=== PATIENT | female | born 1990 | race Caucasian/White ===

== ENCOUNTER 2017-01-20 06:00 | Inpatient (IN) | payer OTHER ==
[~2017-01-20] VITALS: Ht 165.1 cm; Wt 97.0 kg
[~2017-01-20 06:00] MED LIST: CALC600T11 PO; FAMO20TA18 PO; IBUP-1542 PO; LABE100T3 PO; PREN-29 PO; UDMYL PO
[2017-01-20 11:52] VITALS: BP 147/85; PULSE 91; RESP 18
[2017-01-20] MEDS ORDERED: BUTORPHANOL 2 MG INJ IV PRN (12:00)
[2017-01-20] MEDS ORDERED: MISOPROSTOL 200 MCG TAB PR PRN (12:00)
[2017-01-20] MEDS ORDERED: CARBOPROST 250 MCG INJ IM PRN (12:00)
[2017-01-20] MEDS ORDERED: IBUPROFEN 600 MG TAB PO PRN (12:00)
[2017-01-20] MEDS ORDERED: OXYTOCIN 30 UNITS/LR 500 ML IV PRN (12:00)
[2017-01-20] MEDS ORDERED: METHYLERGONOVINE 0.2 MG INJ IM PRN (12:00)
[2017-01-20] MEDS ORDERED: LACTATED RINGER'S 1,000 ML IV PRN (12:00)
[2017-01-20] MEDS ORDERED: LIDOCAINE 1% (MPF) 30 ML INJ INJ PRN (12:00)
[2017-01-20] MEDS ORDERED: OXYTOCIN 30 UNITS/LR 500 ML IV SCH ×2 (12:00)
[2017-01-20] MEDS: LACTATED RINGER'S 1,000 ML IV SCH ×2 (12:22→19:00)
[2017-01-20 12:45] LABS: ADD SCAN DIFF NO
[2017-01-20 12:49] LABS: BASOPHILS % 0.2 % (0.0-2.0); EOSINOPHILS # 0.1 10^3/ul (0.0-0.5); EOSINOPHILS % 1.2 % (0.0-7.0); HEMATOCRIT 39.1 % (37.0-47.0); HEMOGLOBIN 13.1 g/dl (12.0-16.0); LYMPHOCYTES # 1.3 10^3/ul (0.8-2.9); LYMPHOCYTES % 21.5 % (15.0-51.0); MEAN CORPUSCULAR HEMOGLOBIN 27.9 pg (29.0-33.0); MEAN CORPUSCULAR HGB CONC 33.5 g/dl (32.0-37.0); MEAN CORPUSCULAR VOLUME 83.2 fl (82.0-101.0); MONOCYTE # 0.4 10^3/ul (0.3-0.9); MONOCYTES % 6.3 % (0.0-11.0); NEUTROPHIL # 4.2 10^3/ul (1.6-7.5); NEUTROPHILS % 70.1 % (39.0-77.0); PLATELET COUNT 259 10^3/UL (140-415)
[2017-01-20] MEDS ORDERED: MAGNESIUM SULFATE 4 GM/100 ML 100 ML IVPB ONE (13:00)
[2017-01-20] MEDS ORDERED: MAGNESIUM SULFATE 20 GM/500 ML 500 ML IV SCH (13:00)
[2017-01-20] MEDS ORDERED: DINOPROSTONE 10 MG VAG SUPP VAG ONE (13:00)
[2017-01-20 13:03] LABS: INR 0.87; PROTIME 11.8 Sec (12.2-14.2); PT RATIO 0.9
[2017-01-20 13:04] LABS: PARTIAL THROMBOPLASTIN TIME 27.2 Sec (25.0-35.0)
[2017-01-20 13:14] LABS: ALBUMIN 3.4 g/dl (3.3-4.9); ALBUMIN/GLOBULIN RATIO 0.94; CALCIUM 9.3 mg/dl (8.4-10.2); CREATININE 0.54 mg/dl (0.44-1.00); POTASSIUM 3.9 mmol/L (3.5-5.1)
[2017-01-20] MEDS: AMPICILLIN 2 GM/NS (PMX) 100 ML IVPB SCH ×2 (13:20→19:04)
[2017-01-20 14:00] LABS: ADD UMIC YES; URINE BILIRUBIN (Dip) NEGATIVE (NEGATIVE); URINE BLOOD (Dip) 1+ (NEGATIVE); URINE COLOR LT. YELLOW (YELLOW); URINE GLUCOSE (Dip) NEGATIVE (NEGATIVE); URINE KETONES (Dip) NEGATIVE (NEGATIVE); URINE LEUKOCYTE ESTERASE (Dip) 1+ (NEGATIVE); URINE NITRITE (Dip) NEGATIVE (NEGATIVE); URINE TOTAL PROTEIN (Dip) TRACE (NEGATIVE); URINE UROBILINOGEN (Dip) 0.2 E.U./dL (0.1-1.0)
--- NOTE | 2017-01-20 18:13 | HP ---
Date/Time of Note Date/Time of Note DATE: 01/20/17 TIME: 18:09 OB - History Hx of Present Free Text/Dictation admitted for elective induction Last Menstrual Period: Apr 15, 2016 Estimated Due Date: January 20, 2017 : 2 Para: 1 Care: Good Care Ultrasounds: Normal mid trimester US Obstetrical Complications: Other (Chronic HTN ) Medical Complications: Other (Chronic HTN ) Past Family/Social History * Past Medical, Surgical, Family and Obstetric Histories reviewed from chart. Blood Type: O+ Rubella: immune RPR/VDRL: Negative GBS Status: Positive HBsAG: Negative OB Admission Exam Vital Signs Vital Signs Vital Signs Date Time Temp Pulse Resp B/P Pulse Ox O2 Delivery O2 Flow Rate FiO2 01/20/17 11:52 97.5 91 18 147/85 Room Air Physical Exam HEENT: WNL Heart: Rhythm Normal Lungs: Clear, Equal Abdomen: WNL Extremities: Normal Reflexes: Normal Cervical Dilatation: None Effacement: 0% Station: -3 Membranes: Intact Heart Rate: 130's Accelerations: Accelerations Present Decelerations: No Decelerations Varibility: Moderate Contractions on Admission: None Last 72 hours Lab Results CBC & BMP 01/20/17 12:10 Liver Function Test 01/20/17 12:10 Alanine Aminotransferase (ALT/SGPT) 33 Albumin 3.4 Alkaline Phosphatase 187 H Aspartate Amino Transf (AST/SGOT) 33 Direct Bilirubin 0.00 Total Protein 7.0 OB Assessment/Plan Reason for admission: induction of labor Other Assessment: term gestation chronic HTN Induction Method: per Misoprostol Protocol JEFF HASSAN MD January 20, 2017 18:13
[2017-01-21] MEDS: AMPICILLIN 2 GM/NS (PMX) 100 ML IVPB SCH ×4 (00:17→18:16)
--- NOTE | 2017-01-21 01:03 | QN ---
Documentation Comment Patient progressed her cervical dilatation to %80 7-8 -2 or -3 station without further progress X 4-5 hours regardless of adequate contractions. After discussion with patient, agreed to have C/S ads mode of her delivery. Patient had good awareness of nature and complications of C/S procedure including but but limited to infection and hemorrhage. and agreed to undergo C/ S . JEFF HASSAN MD January 21, 2017 01:03
--- NOTE | 2017-01-21 01:07 | OPR ---
Operative Report Planned Procedure Procedure date January 21, 2017 Procedure(s) primary C/S Performed by: JEFF HASSAN MD Assisting provider: CR RAY MD Anesthesiologist: SY HEDRICK DO Pre-procedure diagnosis arrest of dilatation and decent term gestation gestational DM Anesthesia Type: epidural Procedure Description Under satisfactory anaesthesia a Pfannenstiel incision was made two fingerbreadth above and parallel to the symphysis of pubis. Incision was extended laterally to the border of the Recti muscles on either sides. Incision was carried down with sharp and blunt dissection until fascia was reached. Anterior Recti muscle fascia was incised in mid portion and incision extended laterally to the border of skin incision. Fascia was mobilized from muscle superiorly and Recti muscles were from midline using sharp and blunt dissection. Peritoneum was visualized; Avoiding bowel and bladder it was incised . Incision was extended superiorly and inferiorly. Bladder blade was placed. Posterior peritoneum covering the lower segment of the uterus and lower segment of the uterus were incised. Incision was extended laterally to the border of Round Lig. on either sides and baby was delivered from .frontal head position . Amniotic fluid appeared clear. Cord blood was obtained and cord had 3 vessels . Placenta was delivered spontaneously and appeared intact and complete. Intrauterine cavity was rubbed with a laparotomy sponge. Uterine incision was closed in 2 layers using running stitches of No1 Monocryl. Hemostasis appeared secure. Ovaries and Fallopian tubes were within normal limits. Announcing needle, lap sponge and instrument count to be correct abdomen was closed in layers as follows: Peritoneum and Recti muscles with running stitches of 20 Vicryl. Fascia with running stitch of No 1 PDS. Subcutaneous tissue with running stitches of 20 Chromic and skin was closed using corbin. Patient tolerated the procedure well and was transferred to [facility] in good condition. Post-Procedure Post-procedure diagnosis S/P C/S Findings: Live Baby 2 vessel cord Specimen removed: Yes Specimen description Placenta Complications: None Pt Condition post procedure: stable Disposition: PACU Physician Certification I, the undersigned physician, hereby certify that I have discussed the procedure described in this consent form with this patient (or the patient's legal business center representative), including: * The risk and benefits of the procedure; * Any adverse reactions that may reasonably be expected to occur; * Any alternative efficacious methods of treatment which may be medically viable ; * The potential problems that may occur during recuperation; * Potential for blood transfusion and associated risks/benefits; and * Any research or economic interest I may have regarding this treatment. I further certify that the patient/legally responsible person was encouraged to ask question and that all questions were answered. JEFF HASSAN MD January 21, 2017 01:07
[2017-01-21] MEDS: LACTATED RINGER'S 1,000 ML IV SCH ×2 (05:05→11:18)
[2017-01-21] MEDS ORDERED: OXYTOCIN 30 UNITS/LR 500 ML IV SCH (11:00)
[2017-01-21] MEDS ORDERED: FENTAnyl 2MCG/ML-ROPIV 0.2% 100 ML ONE (11:53)
[2017-01-21] MEDS ORDERED: AL HYDROX/MG HYDROX/SIMETH 30 ML CUP PO PRN (14:00)
[2017-01-21] MEDS ORDERED: MINERAL OIL LIGHT 10 ML VIAL TOP ONE (14:30)
[2017-01-21] MEDS ORDERED: NALOXONE (0.4 MG/ML) INJ IV PRN (15:30)
[2017-01-21] MEDS ORDERED: FENTAnyl 2MCG/ML-ROPIV 0.2% 100 ML BAG EPI SCH (15:30)
[2017-01-21] MEDS ORDERED: ONDANSETRON 4 MG INJ IV PRN (15:30)
[2017-01-21] MEDS ORDERED: HYDROmorphONE 1 MG/ML SYG IV PRN ×2 (15:30)
--- NOTE | 2017-01-21 20:25 | LDN ---
Date/Time of Note Date/Time of Note DATE: 01/21/17 TIME: 20:22 Delivery Summary of a viable over intact perineum Weeks of Gestation 40 Placenta Delivered: Spontaneously, Intact & Complete Meconium: Particulate Episiotomy: No Perineal laceration: 0 Laceration repair: small vulvovaginal laceration on L sidr was repaired with 2 0 Chromic Anesthesia type: Epidural Estimated blood loss: 300 Sponge & Needle done & correct: Yes All needle counts correct: Yes Any foreign bodies felt in the: No Problems: Delivery Information Sex Sex: male Apgars 1 Minute: 9 5 Minute: 9 Suctioning Nose & mouth suctioned at ham: Yes Delee suction performed: No Umbilical Cord Umbilical cord with: 3 Vessels Cord presentations: nuchal cord Nuchal cord present X: 1 Cord Blood was obtained: Yes Mother & Baby Disposition Disposition Mom & Baby to Maternity; Good: Yes (mother and baby were recovered in good condition ) Mom transferred to: Other (maternity) Baby to NICU: No JEFF HASSAN MD January 21, 2017 20:25
[2017-01-21] MEDS: LACTATED RINGER'S 1,000 ML IV* SCH (21:46)
[2017-01-21] MEDS ORDERED: OXYTOCIN 30 UNITS/LR 500 ML IV PRN (22:00)
[2017-01-21] MEDS ORDERED: DIBUCAINE 1% 30 GM OINT PR PRN (22:00)
[2017-01-21] MEDS ORDERED: METHYLERGONOVINE 0.2 MG INJ IM PRN (22:00)
[2017-01-21] MEDS ORDERED: ZOLPIDEM 5 MG TAB PO PRN (22:00)
[2017-01-21] MEDS ORDERED: WITCH HAZEL/GLYCERIN PAD PR PRN (22:00)
[2017-01-21] MEDS ORDERED: ACETAMINOPHEN/CODEINE #3 TAB PO PRN ×2 (22:00)
[2017-01-21] MEDS ORDERED: BENZOCAINE 20% 56 ML SPRAY TOP PRN (22:00)
[2017-01-21] MEDS ORDERED: MISOPROSTOL 200 MCG TAB PR PRN (22:00)
[2017-01-21] MEDS ORDERED: CARBOPROST 250 MCG INJ IM PRN (22:00)
[2017-01-21] MEDS ORDERED: LANOLIN 7 GM TUBE TOP PRN (22:00)
[2017-01-21 22:30] VITALS: BP 127/60; PULSE 71; RESP 18
[2017-01-21] MEDS: CEPHALEXIN 500 MG CAP PO SCH (23:28)
[2017-01-21] MEDS: IBUPROFEN 600 MG TAB PO SCH (23:28)
[2017-01-22 00:30] VITALS: BP 119/57; PULSE 62; RESP 18
[2017-01-22 04:00] VITALS: BP 104/54; PULSE 60; RESP 18
[2017-01-22] MEDS: CEPHALEXIN 500 MG CAP PO SCH ×4 (05:44→23:57)
[2017-01-22] MEDS: IBUPROFEN 600 MG TAB PO SCH ×4 (05:44→23:57)
[2017-01-22] MEDS: LACTATED RINGER'S 1,000 ML IV* SCH ×2 (05:46→13:46)
[2017-01-22 08:09] LABS: ADD SCAN DIFF NO
[2017-01-22 08:16] LABS: BASOPHILS % 0.2 % (0.0-2.0); EOSINOPHILS # 0.1 10^3/ul (0.0-0.5); EOSINOPHILS % 0.6 % (0.0-7.0); HEMATOCRIT 36.8 % (37.0-47.0); HEMOGLOBIN 11.9 g/dl (12.0-16.0); LYMPHOCYTES # 1.9 10^3/ul (0.8-2.9); LYMPHOCYTES % 17.4 % (15.0-51.0); MEAN CORPUSCULAR HEMOGLOBIN 27.2 pg (29.0-33.0); MEAN CORPUSCULAR HGB CONC 32.3 g/dl (32.0-37.0); MEAN CORPUSCULAR VOLUME 84.2 fl (82.0-101.0); MEAN PLATELET VOLUME 9.8 fl (7.4-10.4); MONOCYTE # 0.7 10^3/ul (0.3-0.9); MONOCYTES % 6.4 % (0.0-11.0); NEUTROPHIL # 8.1 10^3/ul (1.6-7.5); NEUTROPHILS % 74.7 % (39.0-77.0); PLATELET COUNT 226 10^3/UL (140-415); RED BLOOD COUNT 4.37 10^6/ul (4.20-5.40); RED CELL DISTRIBUTION WIDTH 15.6 % (11.5-14.5); WHITE BLOOD COUNT 10.9 10^3/ul (4.8-10.8)
[2017-01-22 08:20] VITALS: BP 108/50; PULSE 71; RESP 19
[2017-01-22] MEDS ORDERED: LABETALOL 100 MG TAB PO SCH (09:00)
[2017-01-22] MEDS: MAGNESIUM HYDROXIDE 30ML CUP PO SCH ×2 (09:43→20:34)
[2017-01-22] MEDS: SENNA/DOCUSATE NA (8.6MG/50MG) TAB PO SCH ×2 (09:44→20:34)
--- NOTE | 2017-01-22 10:59 | DS ---
Date/Time of Note Date/Time of Note DATE: 01/22/17 TIME: 10:57 Obstetrical Discharge Record Final Diagnosis Final Diagnosis: Term delivered Vaginal Delivery Obstetrical Delivery: Spontaneous, Laceration, Repaired Complications Other (Chronic HTN ) Augmentation: Yes Induction: Yes Condition on Discharge Physical Assessment Last Vitals: see nurses note Voiding: Yes Bowel Movement: Yes Breast: Soft, non-tender, Filling Fundus: Firm Abdomen and Incision: soft BS + Episiotomy: NA Calf Tenderness: No Patient Condition: Good JEFF HASSAN MD January 22, 2017 10:58
--- NOTE | 2017-01-22 11:02 | PD.PPDC ---
[employer] Discharge Instruction Provider Information Physician Information 26 y/o female had vaginal delivery Diagnosis Final Diagnosis: S/P vaginal delivery Condition Patient Condition: Good Diet Diet: Resume Regular Diet Activity/Restrictions Activity: Normal Activity May Shower Restrictions: Nothing in the Vagina Return to Work or School: Mar 09, 2017 Follow-up Follow-up with Physician: 4, Week/Weeks Return to clinic for OB Instructions: Breast Tenderness Depression JEFF HASSAN MD January 22, 2017 11:02
[2017-01-22] MEDS ORDERED: LABE100T3 PO (11:04)
[2017-01-22] MEDS ORDERED: IBUP-1542 PO (11:04)
[2017-01-22 12:00] VITALS: BP 104/60; PULSE 62; RESP 18
[2017-01-22 16:00] VITALS: BP 103/53; PULSE 74; RESP 20
[2017-01-22 20:00] VITALS: BP 111/58; PULSE 72; RESP 18
[2017-01-23 03:52] VITALS: BP 106/51; PULSE 52; RESP 18
[2017-01-23] MEDS: CEPHALEXIN 500 MG CAP PO SCH (05:32)
[2017-01-23] MEDS: IBUPROFEN 600 MG TAB PO SCH (05:32)
[2017-01-23 08:20] VITALS: BP 101/69; PULSE 69; RESP 18
[2017-01-23] MEDS ORDERED: DIPHTH/TET/ACEL PERTUSS (ADULT) 0.5 ML VIAL IM* ONE (09:00)
[2017-01-23] MEDS ORDERED: VARICELLA VACCINE LIVE/PF 1,350 UNIT/0.5 ML ML SC* ONE (09:00)
[2017-01-23] MEDS ORDERED: MEASLES,MUMPS,RUBELLA VACCINE INJ SC* ONE (09:00)
[2017-01-23] MEDS: MAGNESIUM HYDROXIDE 30ML CUP PO SCH (09:23)
[2017-01-23] MEDS: SENNA/DOCUSATE NA (8.6MG/50MG) TAB PO SCH (09:24)
--- NOTE | 2017-01-28 23:14 | NSTRPT ---
NST Information Datetime Report Generated by CPN: 01/28/2017 23:14 Datetime: 01/19/2017 13:20 NST Information EGA: 39.6 Test Number: 5 Time on Monitor: 01/19/2017 13:40 Time off Monitor: 01/19/2017 14:05 NST Duration (Min): 25 Reason for NST: Chronic Hypertension Test and Monitor Explained: Monitor Explained; Test Explained; Verbalized Understanding Pulse: 80 Resp: 17 SBP: 122 DBP: 76 Test Evaluation NST Interventions: Reposition Patient Patient States Movement: Present Contraction Frequency: none FHR Baseline : 135 Variability: Moderate 6-25bpm Accelerations: 15X15 Decelerations: None FHR Category: Category I NST Results: Reactive Comments: PT TO U/S. MELVA 18.6cm, cephalic. 1407-Pt Home undelivered with LABOR precautions. Follow up NST appointment given. Kick Count instructions reviewed. Pt states understanding. No furth er questions asked at this time. Electronically Signed By E-Signature: with User ID: [id number] Datetime: 01/15/2017 13:37 NST Information EGA: 39.2 NST Duration (Min): 30 Datetime: 01/08/2017 14:52 NST Information EGA: 38.2 NST Duration (Min): 33 Datetime: 01/05/2017 13:45 NST Information EGA: 37.6 NST Duration (Min): 49 Datetime: 01/01/2017 13:19 NST Information EGA: 37.2 Datetime: 01/01/2017 13:10 NST Duration (Min): 46
== END 2017-01-23 13:25 | disposition home or self-care (01) | DRG 765 ==
LOC: L-D 10:52 → PP1 01-21 22:12
PROVIDERS: ADMIT Obstetrics & Gynecology; ATTEND Obstetrics & Gynecology
PROC: 10D00Z1 Extraction of Products of Conception, Low, Open Approach (ICD-10-PCS; principal; 2017-01-21)
PROC: 3E00X4Z Introduction of Serum, Toxoid and Vaccine into Skin and Mucous Membranes, External Approach (ICD-10-PCS; 2017-01-21)
DX: O48.0 Post-term pregnancy (principal); O10.92 Unspecified pre-existing hypertension complicating childbirth; O24.429 Gestational diabetes mellitus in childbirth, unspecified control; O62.0 Primary inadequate contractions; Z23 Encounter for immunization; Z3A.40 40 weeks gestation of pregnancy; Z37.0 Single live birth
CPT/HCPCS: 62319; 80053; 81001; 84560; 85025; 85610; 85730; 86592; 86900; 86901; 87340; 90715; 90716; J0290; J2590; J3010; J7120